=== PATIENT | male | born 1965 | race Caucasian/White ===

== ENCOUNTER 2018-12-18 17:58 | Inpatient (IN) | payer MEDICAID ==
[~2018-12-18] VITALS: Ht 170.2 cm; Wt 86.3 kg
[2018-12-18] MEDS ORDERED: LOVENOX (18:45)
[2018-12-18] MEDS ORDERED: GABAPENTIN (18:45)
[2018-12-18] MEDS ORDERED: LISI-167 PO (18:45)
[2018-12-18] MEDS ORDERED: IBUP200T49 PO (18:45)
[2018-12-18] MEDS ORDERED: DILTIAZEM 5 MG/ML, 5ML ONE ×2 (18:50→20:46)
--- NOTE | 2018-12-18 18:58 | NUR ---
PT TO ED FOR SOB X1 DAY. PT STATES ASSOCIATED DIAPHORESIS AND DENIES CP. PT HAD RIGHT LUNG REMOVED 8 DAYS AGO D/T UNKNOWN TYPE OF CA. CONNECTED TO MONITORS. IN AND OUT OF AFIB HR 90S-190S, ALL OTHER VSS. EDMD ASSESSMENT COMPLETE AND ORDERS RECEIVED. IV ESTABLISHED AND LABS DRAWN. NO NEEDS REQUESTED. [facility].
[2018-12-18] MEDS ORDERED: DILTIAZEM 5 MG/ML, 5ML IV ONE ×2 (19:00→21:00)
[2018-12-18] MEDS ORDERED: ASPIRIN 81 MG TABLET CHEW PO ONE (19:00)
[2018-12-18] MEDS ORDERED: SODIUM CHLORIDE FLUSH 10ML SYR IVF ONE (19:00)
[2018-12-18] MEDS ORDERED: ASPIRIN 81 MG TABLET CHEW ONE (19:05)
[2018-12-18 19:12] LABS: MEAN CORPUSCULAR HEMOGLOBIN 26.7 pg (27.5-34.5); MEAN CORPUSCULAR VOLUME 80.9 fL (81-97); MEAN PLATELET VOLUME 7.2 fL (7.4-10.4); PLATELET COUNT 706 x10^3/uL (130-400); RED BLOOD COUNT 3.34 x10^6/uL (4.38-5.82)
[2018-12-18 19:21] LABS: INTERNATIONAL NORMALIZED RATIO 1.02 (0.93-1.1); PROTHROMBIN TIME 10.7 Seconds (9.6-11.5)
[2018-12-18 19:22] LABS: ALANINE AMINOTRANSFERASE 74 U/L (12-78); ALBUMIN 2.6 g/dL (3.4-5.0); ANION GAP 8 mmol/L (5-15); CALCIUM 9.1 mg/dL (8.5-10.1); CHLORIDE 100 mmol/L (98-107); CREATININE 1.33 mg/dL (0.7-1.3)
[2018-12-18 19:26] LABS: ALKALINE PHOSPHATASE 191 U/L (45-117); BILIRUBIN,TOTAL 0.4 mg/dL (0.2-1.0); TOTAL PROTEIN 7.6 g/dL (6.4-8.2); TROPONIN I < 0.015 ng/mL (0.000-0.045)
[2018-12-18 19:36] LABS: BASOPHILS # (AUTO) 0.01 x10^3/uL (0-0.1); BASOPHILS % (AUTO) 0 % (0-1); EOSINOPHILS % (AUTO) 1 % (1-7); LYMPHOCYTES # (AUTO) 1.67 x10^3/uL (1-3.4); LYMPHOCYTES % (AUTO) 10 % (22-44); MD SCAN; MONOCYTES # (AUTO) 2.05 x10^3/uL (0.2-0.8); MONOCYTES % (AUTO) 13 % (2-9); NEUTROPHILS # (AUTO) 12.39 x10^3/uL (1.8-6.8); NEUTROPHILS % (AUTO) 76 % (42-75)
--- NOTE | 2018-12-18 19:44 | NUR ---
back from ct at this time.
[2018-12-18] MEDS ORDERED: OMNIPAQUE 350 MG/ML, 100ML BOTTLE ONE (19:53)
--- NOTE | 2018-12-18 20:33 | NUR ---
CHART UP FOR RECHECK. VSS. NO NEEDS EXPRESSED.
[2018-12-18] MEDS ORDERED: DILTIAZEM 125 MG in DEXTROSE 5% 100 ML IV SCH (20:36)
[2018-12-18] MEDS ORDERED: LORazepam 1MG TABLET ONE (20:46)
[2018-12-18] MEDS ORDERED: LORazepam 1MG TABLET PO ONE (21:00)
--- NOTE | 2018-12-18 21:27 | NUR ---
PT RESTING IN ROOM. VSS. DILTIAZEM GTT STARTED. NO NEEDS REQUESTED. AWAITING ROOM ASSIGNMENT
[2018-12-18] MEDS ORDERED: DILTIAZEM 125 MG in SODIUM CHLORIDE 0.9% 100 ML IV SCH (21:30)
[2018-12-18] MEDS ORDERED: ACETAMINOPHEN 325 MG TABLET PO PRN (21:30)
[2018-12-18] MEDS ORDERED: ENOXAPARIN 40 MG/0.4 ML SQ SCH (21:30)
[2018-12-18] MEDS ORDERED: hydrALAzine 20 MG/ML, 1ML IV PRN (22:00)
[2018-12-18 22:45] VITALS: BP 132/93
== END 2018-12-19 01:18 | disposition left against medical advice (07) | DRG 315 ==
LOC: ED 21:32 → EDIP 21:35 → 5SO 22:07
PROVIDERS: ADMIT Internal Medicine; ATTEND Internal Medicine
DX: I31.3 Pericardial effusion (noninflammatory) (principal); I48.92 Unspecified atrial flutter; C34.90 Malignant neoplasm of unspecified part of unspecified bronchus or lung; T79.7XXA Traumatic subcutaneous emphysema, initial encounter; J91.0 Malignant pleural effusion; I48.0 Paroxysmal atrial fibrillation; I10 Essential (primary) hypertension; F12.90 Cannabis use, unspecified, uncomplicated; D64.9 Anemia, unspecified; Z85.118 Personal history of other malignant neoplasm of bronchus and lung; Z87.891 Personal history of nicotine dependence; Z90.2 Acquired absence of lung [part of]; Z91.14 Patient's other noncompliance with medication regimen; Z53.21 Procedure and treatment not carried out due to patient leaving prior to being seen by health care provider
CPT/HCPCS: 36415; 71045; 71275; 80053; 83880; 84484; 85025; 85610; 85730; 93005; G0378; J1650; Q9967